=== PATIENT | male | born 1960 | race Caucasian/White ===

== ENCOUNTER 2021-12-03 11:42 | Emergency (ER) | payer OTHER, SELFPAY ==
--- NOTE | ~2021-12-03 | XR_ITS ---
EXAMINATION: XR knee LT min 4V DATE: 12/03/2021 12:38 INDICATION: Left knee pain TECHNIQUE: Four views of the left knee were obtained. COMPARISON: None. FINDINGS: Alignment is normal. No fracture or osteochondral lesion. There is tricompartmental osteoar thritis of the knee, advanced in the medial and patellofemoral compartments. There is a small knee ailyn int effusion. Soft tissues are unremarkable. IMPRESSION: 1. Tricompartmental osteoarthritis and knee joint effusion without acute osseous abnormality. Reviewed, dictated and finalized at location B. IMPRESSION: 1. Tricompartmental osteoarthritis and knee joint effusion without acute osseou s abnormality.
--- NOTE | ~2021-12-03 | XR_ITS ---
EXAMINATION: XR ankle LT min 3V, XR foot LT min 3V DATE: 12/03/2021 12:37 INDICATION: TECHNIQUE: 1. Anteroposterior, mortise, additional oblique and lateral view of the left ankle were obtained. 2. Dorsoplantar, oblique and lateral views of the left foot were obtained. COMPARISON: None. FINDINGS: Chronic postoperative changes in the left forefoot. This includes change of a likely prior left hallu x valgus correction with bunionectomy and realignment osteotomy with screw fixation at the head and n olga the first metatarsal and likely realignment osteotomy with staple fixation at the diaphysis of th e first proximal phalanx. Amputation of the second toe with osteotomy at the head of the second metat arsal. Likely hammertoe corrections with osteotomies of the heads of the third and fourth proximal ph alanges. Finally there are osteotomies with screw fixations at the necks of the third and fourth meta tarsals. There is mild residual hallux valgus measuring approximately 18 degrees. Alignment is otherw ise normal. No acute fractures identified at the left foot or ankle. Mild to moderate severity polyar ticular osteoarthritis involving multiple joints at the left hindfoot, mid and forefoot. Small Achill es calcaneal spur with small enthesopathic ossification at the distal Achilles tendon. Moderate-sized plantar calcaneal spur. Left ankle joint space appears relatively preserved with no joint effusion. IMPRESSION: 1. Mild to moderate polyarticular osteoarthritis throughout the left foot with multiple postoperative changes in the forefoot as detailed above. No acute osseous abnormality. Reviewed, dictated and finalized at location A. IMPRESSION: 1. Mild to moderate polyarticular osteoarthritis throughout the left foot with multiple postoperative changes in the forefoot as detailed above. No acute osse ous abnormality.
[2021-12-03 11:51] VITALS: BP 127/74; PULSE 88; RESP 18; TEMP 36.4; O2SAT 99
--- NOTE | 2021-12-03 12:55 | ED.GENADULT ---
HPI - General Adult General Chief complaint: Extremity Injury, Lower Stated complaint: INJURED KNEES/L FOOT History of Present Illness HPI narrative: Patient is a 61-year-old male who presents to the [facility] via POV accompanied by spouse for a left knee, ankle, and foot injury that occurred last night. Patient reports he accidentally tripped over a pillowcase and hit his carpeted floor. Ice and elevation provides mild relief. Walking worsens pain. Pain is constant throbbing/sharp in nature. Current pain level is 5 out of 10 on a pain scale. Related Data Home Medications Medication Instructions Recorded Confirmed blood sugar diagnostic #10 ea 03/26/19 02/26/21 Allergies Allergy/AdvReac Type Severity Reaction Status Date / Time Penicillins Allergy Unknown Unknown Verified 11/29/21 14:59 bacitracin AdvReac Mild Rash Verified 11/29/21 14:59 [From Triple Antibiotic] neomycin AdvReac Mild Rash Verified 11/29/21 14:59 [From Triple Antibiotic] polymyxin B AdvReac Mild Rash Verified 11/29/21 14:59 [From Triple Antibiotic] Review of Systems Review of Systems: Pertinent negatives: fever, chills, sweats, change in appetite, poor p.o. intake, malaise, calf tenderness, skin color changes, rash, warmth, swelling, numbness, tingling, loss of sensation, deformity, decreased range of motion, weakness, difficulty with ambulation/coordination, nausea, vomiting, lymphadenopathy, shortness of breath, chest pain, heart palpitations, and heart murmur. [facility] Past Medical History Medical History (Updated 12/03/21 @ 13:10 by VICKI Doherty, ) Colon polyp Diabetes Hyperlipidemia Hypertension Peripheral neuropathy Surgical History Surgical History S/P appendectomy Social History Social History Smoking status: Never smoker Alcohol intake: never Comments I have reviewed and agree with the patient's past medical, surgical, social, and family hx as documented by the RN. There is no relevant family history pertinent to the presenting complaint. Exam Narrative: GENERAL: Well-appearing, well-nourished, and in no acute distress. HEAD: Normocephalic, atraumatic. NECK: Supple. No Lymphadenopathy or nuchal rigidity appreciated. CHEST: Bilateral lung jordan are clear to auscultation. No respiratory distress. No evidence of cough or pleuritic cp upon examination. HEART: Regular rate and rhythm. No murmur, gallop, or rub heard. EXTREMITIES: Mild pain elicited to anterior left knee with palpation. Mild generalized pain elicited to left ankle with palpation. Mild generalized pain elicited to dorsal aspect of left foot with palpation. Mild pain generalized pain elicited to left knee, left ankle, and left foot with all active and passive range of motion. No evidence of injury, decreased ROM, swelling, cyanosis, hematoma, laceration, abrasion, deformity, rash, or puncture. No evidence of dislocation, ligament laxity, effusion, or pain at rest. Pulses palpable at 2+, strength 5/5, and cap refill < 3 seconds in affected extremity. DTRs normal. Gait slowed and ambulates with left sided limp. SKIN: Warm, dry, no rash. NEURO: No focal deficits. Alert and oriented x3. Course Course Level of Care: Express Care Visit Vital Signs Vital signs: Vital Signs Temperature 97.6 F 12/03/21 11:51 Pulse Rate 88 12/03/21 11:51 Respiratory Rate 18 12/03/21 11:51 Blood Pressure 127/74 12/03/21 11:51 Pulse Oximetry 99 12/03/21 11:51 Oxygen Delivery Room Air 12/03/21 11:51 Temperature 97.6 F 12/03/21 11:51 Pulse Rate 88 12/03/21 11:51 Respiratory Rate 18 12/03/21 11:51 Blood Pressure 127/74 12/03/21 11:51 Pulse Oximetry 99 12/03/21 11:51 Oxygen Delivery Room Air 12/03/21 11:51 Medical Decision Making Differential Diagnosis Differential Diagnosis: Sprain,
== END 2021-12-03 13:13 | disposition home or self-care (01) ==
PROVIDERS: Emergency Provider Nurse Practitioner Family; PCP Family Medicine
DX: M25.562 Pain in left knee (principal); M25.572 Pain in left ankle and joints of left foot; W01.0XXA Fall on same level from slipping, tripping and stumbling without subsequent striking against object, initial encounter; E11.9 Type 2 diabetes mellitus without complications; E78.5 Hyperlipidemia, unspecified; I10 Essential (primary) hypertension
CPT/HCPCS: 73564; 73610; 73630; 99214; G0463

== ENCOUNTER 2024-01-31 09:50 | Emergency (ER) | payer OTHER, SELFPAY ==
[2024-01-31 09:59] VITALS: BP 157/84; PULSE 83; RESP 16; TEMP 36.4
--- NOTE | 2024-01-31 10:04 | ED.EYEPROB ---
HPI - Eye Problem General Chief complaint: Eye Problems Stated complaint: Right eye Time Seen by Provider: 01/31/24 10:04 Source: patient Mode of arrival: ambulatory Limitations: no limitations History of Present Illness HPI Narrative: 63-year-old male with a history of diabetes presented for complaint of right upper eyelid swelling and redness. Onset yesterday. Since the pain is better today. He states he woke yesterday with lot of crust in the eyelid. Endorses frequent tearing. He denies vision changes, headache, photophobia, dizziness, nausea, vomiting or fever. MD chief complaint: eye pain Related Data Home Medications Medication Instructions Recorded Confirmed blood sugar diagnostic #10 ea 03/26/19 10/13/23 Allergies Allergy/AdvReac Type Severity Reaction Status Date / Time Penicillins Allergy Unknown Unknown Verified 01/31/24 10:15 bacitracin AdvReac Mild Rash Verified 01/31/24 10:15 [From Triple Antibiotic] neomycin AdvReac Mild Rash Verified 01/31/24 10:15 [From Triple Antibiotic] polymyxin B AdvReac Mild Rash Verified 01/31/24 10:15 [From Triple Antibiotic] Review of Systems Review of Systems: CONSTITUTIONAL: Denies body aches, fever, chills EYES:Endorses swelling, redness right upper eyelid Denies visual changes, FB sensation, photophobia ENT: Denies rhinorrhea, congestion, sore throat, or otalgia. CARDIOVASCULAR: Denies chest pain, palpitations RESPIRATORY: Denies cough or dyspnea. SKIN: Denies rash NEUROLOGIC: Denies headache, numbness, tingling All systems reviewed & are unremarkable except as noted in HPI and below PMFSH Past Medical History Medical History Amputated toe Colon polyp Diabetes Hyperlipidemia Hypertension Metatarsal boss of left foot Peripheral neuropathy Surgical History Surgical History S/P appendectomy Social History Social History Smoking status: Never smoker Alcohol intake: never Lack of Transportation: No Lack of Food: Sometimes True Current Housing: I Have Housing Concerned About Future Housing: No Difficulty Paying Gas/Electric Bills: No Difficulty Paying for Meds: No Currently Unemployed: No Education: Associate Degree Difficulty w/ Childcare or Family Care: No Comments At time of signature, I have reviewed and agree with nursing past medical, surgical, social and family history unless otherwise noted. Please see nursing chart for further information. There is no relevant family history pertinent to the presenting complaint Exam Narrative: GENERAL: Well-appearing HEAD: Normocephalic, atraumatic. EYES: mild right conjunctival injection, Right upper eye lid swelling/redness c/w stye. No active drainage. PERRLA, EOMI. Lid eversion shows no FB. ENT: Mucous membranes pink and moist. No rhinorrhea. TMs normal bilaterally. Throat normal. Uvula midline. CHEST: Clear to auscultation. HEART: Regular rate and rhythm. SKIN: Warm, dry, no rash. Normal skin turgor. NEURO: No focal deficits. Alert and oriented x3 Course Course Emergency Course: Patient is aware of diagnosis, understands and agrees to treatment plan. Anticipatory guidance given. Patient agrees to follow-up as directed and is aware of reasons to seek care at the emergency department. Portions of this record may have been created with voice recognition software Level of Care: Express Care Visit Vital Signs Vital signs: Vital Signs Temperature 97.6 F 01/31/24 09:59 Pulse Rate 83 01/31/24 09:59 Respiratory Rate 16 01/31/24 09:59 Blood Pressure 157/84 H 01/31/24 09:59 Temperature 97.6 F 01/31/24 09:59 Pulse Rate 83 01/31/24 09:59 Respiratory Rate 16 01/31/24 09:59 Blood Pressure 157/84 H 01/31/24 09:59 MDM - Eye Problem MDM Narrative Medical decision making narrative: Discussed physical exam findings c/w stye. Pt does not follow with ophtho, he is provided with a list of eye specialists. Advised supportive measures and signs/symptoms to go to the ER. Pt is appropriate for outpt treatment and f/u. Differential Diagnosis Differential diagnosis: Likely corneal abrasion, conjunctivitis, acute iritis, periorbital cellulitis and other Discharge Plan Discharge Clinical Impression: External hordeolum Patient Disposition: Home, Self-Care Condition: Stable Instructions: Antibiotic Form, Stroseanne (ED) Additional Instructions: Apply warm, moist compresses on the affected area frequently (for 5 to 10 minutes three to five times per day) in order to help with drainage. Massage and gentle wiping of the affected eyelid after the warm compress can also help with drainage. You can use baby shampoo to wash the eye area Avoid wearing eye makeup or contact lenses Tylenol as needed for pain Take medication as directed. If the lesion does not improve within one week, please follow up with an livestock feeder for further management. Go to the ER for any worsening symptoms or concerns (vision changes, eye pain, headache etc) [facility] [phone] [facility] [phone] [employer] [phone] [facility] [phone] Prescriptions: New cephalexin 500 mg capsule 500 mg PO Q8H 5 Days Qty: 15 0RF No Action Linzess 145 mcg capsule 145 mcg PO DAILY Qty: 30 0RF Rx Instructions: samples Ozempic 2 mg/dose (8 mg/3 mL) pen injector 2 mg subcut WEEKLY Qty: 9 2RF modafinil [Provigil] 200 mg tablet 200 mg PO QAM Qty: 90 1RF (DME) FreeStyle Leana 3 [place] Misc See Rx Instructions .Route Qty: 1 0RF Rx Instructions: As directed (DME) FreeStyle Leana 3 Sensor Device See Rx Instructions .Route Qty: 10 3RF Rx Instructions: As directed (DME) CPAP supply See Rx Instructions .Route .MEDSUPPLY Qty: 1 0RF Rx Instructions: Pt has CPAP machine, need mask fitting, tubing ,humidifier and filters. Semglee Pen U-100 Insulin 100 unit/mL (3 mL) insulin pen 150 unit subcut QAM Qty: 135 3RF (DME) blood sugar diagnostic Strip See Rx Instructions .ROUTE .MEDSUPPLY Qty: 10 Rx Instructions: As directed (DME) OneTouch Ultra Blue Test Strip Strip See Rx Instructions .ROUTE .MEDSUPPLY Qty: 300 3RF Rx Instructions: As directed tid and prn loperamide 2 mg tablet 2 mg PO DIRECTED PRN (Reason: loose stool) Qty: 30 0RF Rx Instructions: 4 mg, followed by 2 mg after each loose stool; maximum: 16 mg/day gabapentin 800 mg tablet 800 mg PO QHS Qty: 90 3RF gabapentin 400 mg capsule 400 mg PO DAILY Qty: 90 3RF lisinopril 5 mg tablet See Rx Instructions .ROUTE .COMPLEX Qty: 90 3RF Dose Instruction: TAKE 1 TABLET DAILY Rx Instructions: TAKE 1 TABLET DAILY (DME) blood-glucose meter Kit See Rx Instructions .Route Qty: 1 0RF Rx Instructions: As directed insulin glargine U-300 conc [Toujeo SoloStar U-300 Insulin] 300 unit/mL (1.5 mL) insulin pen 150 unit subcut DAILY Qty: 67.5 1RF Ozempic 1 mg/dose (2 mg/1.5 mL) pen injector 1 mg SUB-Q WEEKLY Qty: 10.5 3RF metformin 1,000 mg tablet 1,000 mg PO BID Qty: 180 1RF Jardiance 25 mg tablet 25 mg PO QAM Qty: 90 1RF zolpidem 10 mg tablet 10 mg PO QHS PRN (Reason: sleep) Qty: 90 2RF Linzess 290 mcg capsule 290 mcg PO DAILY Qty: 90 1RF Follow-up/Referrals: Surendra Huffman MD [Primary Care Provider] -
== END 2024-01-31 10:30 | disposition home or self-care (01) ==
PROVIDERS: Emergency Provider Nurse Practitioner Family; PCP Family Medicine
DX: H00.011 Hordeolum externum right upper eyelid (principal); E11.42 Type 2 diabetes mellitus with diabetic polyneuropathy; I10 Essential (primary) hypertension; E78.5 Hyperlipidemia, unspecified
CPT/HCPCS: 99213; G0463